=== PATIENT | male | born 1985 | race Two or more races ===

== ENCOUNTER 2017-02-01 22:20 | Emergency (ER) | payer OTHER ==
[2017-02-01 22:53] VITALS: O2SAT 93
[2017-02-01] MEDS ORDERED: LISINOPRIL 20 MG TAB PO ONE (23:18)
--- NOTE | 2017-02-01 23:18 | EDPHY ---
H & P Stated Complaint: BP CHECK Time Seen by Provider: 02/01/17 22:51 HPI/ROS: CHIEF COMPLAINT: blood pressure elevated HISTORY OF PRESENT ILLNESS: evidently this 31-year-old otherwise healthy male had his 1st office visit in over 7 years this past week. This was done on the urging of his who just wanted to get checked. Specifically he has not been feeling on well in any way whatsoever-see below. At this wellness check initial H and P at the [facility] he was identified as having moderate hypertension. He tells me the blood pressure was 1/40 over something. He was assigned the following tasks: Monitor blood pressure home with a sphygmomanometer [facility] So kulwinder [facility] to get 180/120. It really did not job with the numbers that he was getting home thus he wanted to come here and get checked. Specifically denies any stimulants such as caffeine or illicit substances such as cocaine or meth. In an unrelated worrisome fashion he has a strong family history for early cardiac in both his uncle and his brother. His brother had diabetes and age 40. Evidently, nobody in the family really has high blood pressure. Finally, he has gained 50 lb at 200 lb compared to when he left high school at age 16 He specifically denies headache, diplopia, blurred vision, nausea, vomiting, chest pain, shortness of breath, any discomfort in the thoracoabdominal area, or sense of dread. While at the [facility] this past week for his initial H and P he had some blood work which showed an and mildly elevated cholesterol. His next follow-up appointment is this , 3 days from now. REVIEW OF SYSTEMS: Constitutional: No fever, no chills, no recent weight loss or weight gain Eyes: No discharge No diplopia, nor difficulty with spots ENT: No sore throat. Cardiovascular: No chest pain, no palpitations. Respiratory: No cough, shortness of breath, or wheezing. Gastrointestinal: No nausea vomiting or diarrhea. No abdominal pain. Genitourinary: No hematuria or frequency. He is having no flank. Musculoskeletal: No back pain. Skin: No rashes. Neurological: No headache. 10 point ROS otherwise negative Source: Patient Exam Limitations: Language barrier - Medical/Surgical History Hx Asthma: No Hx Chronic Respiratory Disease: No Hx Diabetes: No Hx Cardiac Disease: No Hx Renal Disease: No Hx Cirrhosis: No Hx Alcoholism: No Hx HIV/AIDS: No Hx Splenectomy or Spleen Trauma: No Other PMH: DENIES PMH/PSH - only seen a doctor once in 7 yrs, last week. - Family History Significant Family History: Heart disease, Diabetes - Social History Smoking Status: Never smoked Alcohol Use: None Drug Use: None - Physical Exam Exam: General Appearance: Alert, no distress. Afebrile. Normal phonation. No respiratory distress. Eyes: Pupils equal and round no pallor or injection. No icterus ENT, Mouth: Mucous membranes moist. Pharynx without erythema or exudate. TM Clear. Neck: No adenopathy. Supple. No JVD. Trachea in midline. Respiratory: There are no retractions, lungs are clear to auscultation. Cardiovascular: Regular rate and rhythm, no murmur. Abdomen: Soft and nontender, no masses, bowel sounds normal. No HSM. Neurological: Ox3. No motor weakness. Sensation intact. Gait nl. Skin: Warm and dry, no rashes. Musculoskeletal: No joint swelling. Extremities: No edema. Homans sign negative. No cords. Psychiatric: Normal affect. Patient is oriented X 3, there is no agitation Constitutional: Initial Vital Signs Temperature (C) 36.4 C 02/01/17 22:29 Heart Rate 80 02/01/17 22:29 Respiratory Rate 18 02/01/17 22:29 Blood Pressure 184/120 H 02/01/17 22:29 O2 Sat (%) 93 02/01/17 22:29 O2 Delivery Mode Room Air Allergies/Adverse Reactions: No Known Allergies Allergy (Unverified 02/01/17 22:49) Home Medications: Medication Instructions Recorded Lisinopril 10 mg PO DAILY #30 tablet 02/01/17 Medical Decision Making - Diagnostics EKG Interpretation: EKG: Interpreted by me contemporaneously. Normal sinus rhythm. Heart rate 73. QTc 410 Q waves {none] none STT segment: Early repolarization as seen in man his age. 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 As he has had prior labs done just within the last week wound further he has normal creatinine. His EKG is normal for age. Thus we will initiate lisinopril therapy beginning tonight. Differential Diagnosis: Diagnostic considerations include, but are not limited to, the following: Essential hypertension, malignant hypertension, urgent hypertension, substance abuse, end-organ dysfunction. As he is recently had blood work at an outside clinic it would be reasonable to ascertain and assume that he has had a normal creatinine and does not show any signs of kidney damage related to his hypertension. Granted, is now close to midnight there is no means for me to verify this. Nonetheless, he is having appointment soon as Clinic for follow-up on a reasonably scheduled basis and thus will go ahead and conduct an EKG as 1 had not been done so prior. Specifically, looking for any signs of LVH. Ultimately the EKG did show early repolarization but no acute change. - Data Points Medications Given: Discontinued Medications Lisinopril (Zestril) 10 mg PO EDNOW ONE Stop: 02/01/17 23:19 Last Admin: 02/01/17 23:26 Dose: 10 mg Departure - Departure Disposition: Home, Routine, Self-Care Clinical Impression: Hypertension Qualifiers: Hypertension type: essential hypertension Qualified Code(s): I10 - Essential ( primary) hypertension Condition: Good Instructions: Hypertension (ED) Additional Instructions: Go ahead and start the lisinopril and the daily dose beginning tomorrow morning Next dose is tomorrow morning Take this paper with you to your next appointment as scheduled in 3 days time, as it has the following blood pressure readings: 170/118 This was taken some 25 minutes after arrival after he had a chance to relax. - Empiece con caldwell tratamiento Lisinopril con scot dosis diaria desde maana en la maana. - Lleve sol papel a [place] proxim[place], ya que tiene [place] presion de 170/ 118 - Esta se tushar florecita a 20 minutos de caldwell llegada despues de tener la oportunidad de relajarse. Referrals: CLINICA IVY,. [Primary Care Provider] - As per Instructions Prescriptions: Lisinopril 10 mg PO DAILY #30 tablet Print Language: Kazakh
--- NOTE | 2017-02-01 23:23 | CPEKG ---
Heart Rate: 73 RR Interval: 822 P-R Interval: 200 QRSD Interval: 88 QT Interval: 372 QTC Interval: 410 P [place]: 34 QRS [place]: 66 T Wave [place]: 36 EKG Severity - NORMAL ECG - EKG Impression: SINUS RHYTHM EKG Impression: ST ELEV, PROBABLE NORMAL EARLY REPOL PATTERN Electronically Signed By: Jay Wisdom 02-Feb-2017 00:54:15
[2017-02-01 23:39] VITALS: BP 169/108; PULSE 72; RESP 16; TEMP 97.9
== END 2017-02-01 23:31 | disposition home or self-care (01) ==
LOC: CED 22:20
DX: I10 Essential (primary) hypertension (principal)

== ENCOUNTER 2018-12-26 02:32 | Emergency (ER) | payer OTHER | END 2018-12-26 04:15 | disposition home or self-care (01) | LOC: CED 02:32 ==